=== PATIENT | male | born 1965 | race Caucasian/White ===

== ENCOUNTER 2024-06-01 17:33 | Inpatient (IN) | payer SELFPAY ==
[~2024-06-01] VITALS: Ht 167.6 cm; Wt 79.8 kg
[2024-06-01 17:38] VITALS: O2SAT 100
[2024-06-01] MEDS: SODIUM CHLORIDE 0.9% 1,000 ML IV ONE (18:01)
[2024-06-01] MEDS: FOLIC ACID 1 MG, THIAMINE HCL 100 MG, MVI, ADULT NO.1 10 ML in DEXTROSE 5% WATER 1,000 ML IV ONE (18:30)
[2024-06-01 18:43] LABS: CLARITY URINE CLEAR (CLEAR); COLOR URINE YELLOW (YELLOW); GLUCOSE URINE 3+ (NEGATIVE); KETONES URINE 2+ (NEGATIVE); LEUKOCYTE ESTERASE URINE NEGATIVE (NEGATIVE); NITRITE URINE NEGATIVE (NEGATIVE); OCCULT BLOOD URINE NEGATIVE (NEGATIVE); PH URINE 5.5 (4.5-8.0); PROTEIN URINE 1+ (NEGATIVE); SPECIFIC GRAVITY URINE 1.025 (1.005-1.030); UROBILINOGEN URINE 0.2 E.U./dL (0.2-1.0)
[2024-06-01 19:01] LABS: RBC URINE 0-2 /hpf (0-2); SQUAMOUS EPITHELIAL CELL URINE RARE /lpf (RARE/1+); WBC URINE 0-2 /hpf (0-2)
[2024-06-01 19:02] LABS: BACTERIA URINE NONE SEEN
[2024-06-01 20:21] LABS: BASOPHILS % 0.2 % (0.0-2.0); HEMATOCRIT. 44.9 % (42.0-52.0); MEAN CORPUSCULAR HEMOGLOBIN 29.8 pg (28.0-32.0); MEAN CORPUSCULAR HGB CONC 33.4 g/dL (31.0-37.0); MEAN CORPUSCULAR VOLUME 89.2 fL (80.0-94.0); MEAN PLATELET VOLUME 8.9 fl (7.4-10.4); MONOCYTES % 4.1 % (2.0-8.0); NEUTROPHILS % 79.7 % (40.0-76.0); PLATELET 253 x1000/uL (130-400); RED BLOOD CELL COUNT 5.03 mill/uL (4.7-6.1); RED CELL DISTRIBUTION WIDTH 13.7 % (11.6-14.6)
[2024-06-01 20:25] LABS: PROTHROMBIN TIME 10.9 sec (9.6-11.0)
[2024-06-01 20:28] LABS: CARBON DIOXIDE 20 mEq/L (21-32); CHLORIDE 103 mEq/L (98-107); POTASSIUM 3.6 mEq/L (3.5-5.1); SODIUM 140 mEq/L (136-145)
[2024-06-01 20:29] LABS: CALCIUM 9.1 mg/dL (8.7-10.4)
[2024-06-01 20:33] LABS: CREATININE 1.2 mg/dL (0.6-1.3); GLUCOSE 253 mg/dL (70-105)
[2024-06-01 20:34] LABS: TROPONIN I HIGH SENSITIVITY 13 ng/L (3.0-53); UREA NITROGEN BLOOD 11 mg/dL (9-23)
[2024-06-01 20:35] LABS: ACETAMINOPHEN < 2 ug/mL (10-30); ALANINE AMINOTRANSFERASE 21 IU/L (10-49); ALBUMIN 4.6 g/dL (3.2-4.8); ASPARTATE AMINOTRANSFERASE 24 IU/L (<34)
[2024-06-01 20:36] LABS: BILIRUBIN DIRECT 0.2 mg/dL (<=3.0); BILIRUBIN TOTAL 0.6 mg/dL (0.1-1.0); PHOSPHORUS 2.3 mg/dL (2.5-4.9); PROTEIN TOTAL 7.7 g/dL (6.0-8.3)
[2024-06-01 20:39] LABS: ETHANOL BLOOD < 10 mg/dL (<10)
[2024-06-01] MEDS: LORAZEPAM 2MG/ML INJ IV ONE ×2 (20:43→21:45)
[2024-06-01] MEDS ORDERED: MAGNESIUM/ALUMINUM HYDROXIDE/SIMETHICONE 30ML UDC PO PRN (21:15)
[2024-06-01] MEDS ORDERED: DEXTROSE 50% WATER 50ML SYRINGE IV PRN (21:15)
[2024-06-01] MEDS ORDERED: ACETAMINOPHEN 325MG TABLET PO PRN (21:15)
[2024-06-01] MEDS ORDERED: CLONIDINE 0.1MG TABLET PO PRN (21:15)
[2024-06-01] MEDS ORDERED: DOCUSATE SODIUM 100MG CAPSULE PO PRN (21:15)
[2024-06-01] MEDS ORDERED: ONDANSETRON HCL 4MG/2ML INJ IV PRN (21:15)
[2024-06-01] MEDS ORDERED: IPRATROPIUM/ALBUTEROL 0.5-3(2.5)MG/3ML NEB HHN PRN (21:15)
[2024-06-01] MEDS ORDERED: GUAIFENESIN 200MG/10ML SUGAR FREE UDC PO PRN (21:15)
[2024-06-01] MEDS: MAGNESIUM 2 G PREMIX 50 ML IV NR (21:30)
[2024-06-01] MEDS: POTASSIUM PHOSPHATE 15 MMOL in DEXT 5% WATER 245 ML IV NR (22:00)
[2024-06-01 23:00] VITALS: BP 144/77; PULSE 135; RESP 18; TEMP 37.61412; O2SAT 100
[2024-06-01] MEDS ORDERED: NITROGLYCERIN 0.4MG TABLET SL SL PRN (23:00)
[2024-06-01] MEDS: METOPROLOL TARTRATE 5MG/5ML VIAL IV NR (23:10)
[2024-06-02] VITALS: BP 139/82; PULSE 117; RESP 18; TEMP 36.33624; O2SAT 98
[2024-06-02 04:00] VITALS: BP 158/93; PULSE 133; RESP 20; TEMP 37.503; O2SAT 99
[2024-06-02] MEDS: BLOOD SUGAR DIAGNOSTIC STRIP TEST SCH (06:35)
[2024-06-02] MEDS: INSULIN LISPRO 100 UNITS/ML SUBCUT SCH (06:42)
[2024-06-02 08:00] VITALS: BP 159/94; PULSE 115; RESP 16; TEMP 36.6696; O2SAT 98
[2024-06-02] MEDS: PANTOPRAZOLE SODIUM 40 MG/VIAL IV SCH (08:23)
[2024-06-02] MEDS: METOPROLOL SUCCINATE 50MG ER TABLET PO SCH (08:23)
[2024-06-02] MEDS: FOLIC ACID 1MG TABLET PO SCH (08:23)
[2024-06-02] MEDS: THIAMINE HCL 100MG TABLET PO SCH (08:23)
[2024-06-02 08:43] LABS: CALCIUM 8.9 mg/dL (8.7-10.4); POTASSIUM 3.2 mEq/L (3.5-5.1)
[2024-06-02 08:48] LABS: CREATININE 1.3 mg/dL (0.6-1.3)
[2024-06-02 08:50] LABS: BASOPHILS % 0.4 % (0.0-2.0); EOSINOPHILS % 0.1 % (0.0-5.0); HEMOGLOBIN. 14.3 g/dL (14.0-18.0); LYMPHOCYTES % 26.6 % (20.0-50.0); MEAN CORPUSCULAR HEMOGLOBIN 31.1 pg (28.0-32.0); MEAN CORPUSCULAR HGB CONC 34.9 g/dL (31.0-37.0); MEAN CORPUSCULAR VOLUME 89.1 fL (80.0-94.0); MEAN PLATELET VOLUME 9.6 fl (7.4-10.4); MONOCYTES % 7.1 % (2.0-8.0); NEUTROPHILS % 65.8 % (40.0-76.0); PLATELET 218 x1000/uL (130-400); RED CELL DISTRIBUTION WIDTH 13.7 % (11.6-14.6); WHITE BLOOD COUNT 12.2 x1000/uL (4.5-11.0)
[2024-06-02 09:55] LABS: *AMPHETAMINES SCREEN URINE NEGATIVE (NEGATIVE); *BARBITURATES SCREEN URINE NEGATIVE (NEGATIVE); *BENZODIAZEPINES SCREEN URINE NEGATIVE (NEGATIVE)
[2024-06-02 09:56] LABS: *COCAINE SCREEN URINE NEGATIVE (NEGATIVE); METHADONE URINE SCREEN NEGATIVE (NEGATIVE)
[2024-06-02 09:57] LABS: CANNABINOID URINE SCREEN NEGATIVE (NEGATIVE); ECSTASY MDMA SCREEN URINE NEGATIVE (NEGATIVE); OPIATES URINE SCREEN NEGATIVE (NEGATIVE); PHENCYCLIDINE URINE SCREEN NEGATIVE (NEGATIVE)
[2024-06-02] MEDS: LORAZEPAM 2MG/ML INJ IV PRN (15:18)
[2024-06-02 15:21] VITALS: BP 158/87; PULSE 108; RESP 16; TEMP 36.6696; TEMP 36.66960; O2SAT 98
[2024-06-02] MEDS: FLUOXETINE HCL 10 MG CAPSULE PO SCH (16:00)
== END 2024-06-02 19:28 | disposition left against medical advice (07) | DRG 201 ==
LOC: ER 17:33 → 5WST 20:42 → EDBEDREQSVC 20:44 → EDBEDREQTM 20:44 → EDBEDREQ 20:44 → 5WST 06-02 08:06
PROVIDERS: ADMIT Internal Medicine; ATTEND Internal Medicine
DX: I47.10 Supraventricular tachycardia, unspecified (principal); R65.10 Systemic inflammatory response syndrome (SIRS) of non-infectious origin without acute organ dysfunction; E83.39 Other disorders of phosphorus metabolism; F33.2 Major depressive disorder, recurrent severe without psychotic features; D72.829 Elevated white blood cell count, unspecified; E11.65 Type 2 diabetes mellitus with hyperglycemia; Z20.822 Contact with and (suspected) exposure to COVID-19; Z53.29 Procedure and treatment not carried out because of patient's decision for other reasons; I10 Essential (primary) hypertension; E83.42 Hypomagnesemia; F10.239 Alcohol dependence with withdrawal, unspecified; R79.89 Other specified abnormal findings of blood chemistry; Z63.9 Problem related to primary support group, unspecified; Z79.899 Other long term (current) drug therapy
CPT/HCPCS: 36415; 71045; 80048; 80061; 80076; 80305; 80307; 80320; 80329; 81003; 82962; 83036; 83735; 83880; 84100; 84145; 84484; 85025; 85379; 87426; 93005; 93970; 99291; J1815; J2060; J2470; J3411; J3475; J3490; J7030; J7060; J7070; G0480

== ENCOUNTER 2024-09-09 10:26 | Inpatient (IN) | payer SELFPAY ==
[~2024-09-09] VITALS: Ht 170.2 cm; Wt 85.7 kg
[2024-09-09 11:14] LABS: BASOPHILS % 0.4 % (0.0-2.0); HEMATOCRIT. 47.4 % (42.0-52.0); HEMOGLOBIN. 16.4 g/dL (14.0-18.0); LYMPHOCYTES % 19.5 % (20.0-50.0); MEAN CORPUSCULAR HEMOGLOBIN 30.9 pg (28.0-32.0); MEAN CORPUSCULAR HGB CONC 34.6 g/dL (31.0-37.0); MEAN CORPUSCULAR VOLUME 89.3 fL (80.0-94.0); MEAN PLATELET VOLUME 9.9 fl (7.4-10.4); MONOCYTES % 3.9 % (2.0-8.0); NEUTROPHILS % 76.2 % (40.0-76.0); PLATELET 263 x1000/uL (130-400); RED CELL DISTRIBUTION WIDTH 13.9 % (11.6-14.6); WHITE BLOOD COUNT 16.8 x1000/uL (4.5-11.0)
[2024-09-09 11:24] LABS: CHLORIDE 102 mEq/L (98-107); SODIUM 137 mEq/L (136-145)
[2024-09-09 11:25] LABS: CALCIUM 9.8 mg/dL (8.7-10.4); CARBON DIOXIDE 19 mEq/L (21-32)
[2024-09-09 11:30] LABS: CREATININE 1.2 mg/dL (0.6-1.3); GLUCOSE 241 mg/dL (70-105); UREA NITROGEN BLOOD 7 mg/dL (9-23)
[2024-09-09 11:48] LABS: ETHANOL BLOOD < 10 mg/dL (<10)
[2024-09-09 12:41] LABS: LACTIC ACID 5.6 mmol/L (0.4-2.0)
[2024-09-09] MEDS ORDERED: DEXTROSE 50% WATER 50ML SYRINGE IV PRN (13:00)
[2024-09-09] MEDS ORDERED: BLOOD SUGAR DIAGNOSTIC STRIP TEST PRN (13:00)
[2024-09-09] MEDS ORDERED: KCL 20MEQ/100ML PREMIX 100 ML IV PRN (13:00)
[2024-09-09] MEDS ORDERED: MAGNESIUM 2 G PREMIX 50 ML IV PRN (13:00)
[2024-09-09 13:20] LABS: BG BASE EXCESS 1.2 mmol/L (-2.0-3.0); BG CARBOXYHEMOGLOBIN 0.8 % (0.5-1.5); BG FRACTION INSPIRED OXYGEN 21; BG HCO3 ACT 21.6 mmol/L (21.0-28.0); BG METHEMOGLOBIN 0.1 % (0.5-1.5); BG OXYHEMOGLOBIN 96.1 % (94.0-98.0); BG PCO2 25.1 mmHg (35.0-48.0); BG PH 7.553 (7.350-7.450); BG PO2 83.2 mmHg (83.0-108.0); BG SAMPLE SITE RIGHT RADIAL; BG TOTAL HEMOGLOBIN 16.2 g/dL (13.5-17.5); BG VENT MODE ROOM AIR
[2024-09-09] MEDS: SODIUM CHLORIDE 0.9% 1,000 ML IV ONE (13:27)
[2024-09-09] MEDS: BLOOD SUGAR DIAGNOSTIC STRIP TEST SCH (13:33)
[2024-09-09] MEDS: INSULIN REGULAR (HUMULIN R) 1000UNITS/10ML VIAL IV NR (13:38)
[2024-09-09] MEDS: INSULIN REGULAR 100U/100ML PMX 100 ML IV SCH (14:30)
[2024-09-09] MEDS: DEXT 5%/0.9% NACL 1,000 ML IV SCH (14:36)
[2024-09-09 14:44] LABS: PHOSPHORUS 1.2 mg/dL (2.5-4.9)
[2024-09-09] MEDS: SODIUM CHLORIDE 0.9% 1,000 ML IV SCH (17:00)
[2024-09-09 18:15] LABS: *AMPHETAMINES SCREEN URINE NEGATIVE (NEGATIVE); *BARBITURATES SCREEN URINE NEGATIVE (NEGATIVE); *BENZODIAZEPINES SCREEN URINE NEGATIVE (NEGATIVE); *COCAINE SCREEN URINE NEGATIVE (NEGATIVE); CANNABINOID URINE SCREEN NEGATIVE (NEGATIVE); ECSTASY MDMA SCREEN URINE NEGATIVE (NEGATIVE); METHADONE URINE SCREEN NEGATIVE (NEGATIVE); OPIATES URINE SCREEN NEGATIVE (NEGATIVE); PHENCYCLIDINE URINE SCREEN NEGATIVE (NEGATIVE)
[2024-09-09 21:49] LABS: CHLORIDE 106 mEq/L (98-107); SODIUM 140 mEq/L (136-145)
[2024-09-09 21:50] LABS: CALCIUM 9.3 mg/dL (8.7-10.4); CARBON DIOXIDE 21 mEq/L (21-32)
[2024-09-09 21:55] LABS: CREATININE 1.3 mg/dL (0.6-1.3); GLUCOSE 179 mg/dL (70-105); UREA NITROGEN BLOOD 8 mg/dL (9-23)
[2024-09-09 21:57] LABS: ALANINE AMINOTRANSFERASE 12 IU/L (10-49); ALBUMIN 4.4 g/dL (3.2-4.8); ASPARTATE AMINOTRANSFERASE 16 IU/L (<34)
[2024-09-09 21:58] LABS: BILIRUBIN TOTAL 0.6 mg/dL (0.1-1.0); PROTEIN TOTAL 7.5 g/dL (6.0-8.3)
[2024-09-09 22:17] LABS: PHOSPHORUS 0.5 mg/dL (2.5-4.9)
[2024-09-09] MEDS: POTASSIUM CHLORIDE 40 MEQ in SODIUM CHLORIDE 0.9% 230 ML IV PRN (23:06)
[2024-09-09] MEDS: SODIUM PHOSPHATE 15 MMOL in SODIUM CHLORIDE 0.9% 245 ML IV PRN (23:06)
[2024-09-10] MEDS ORDERED: ACETAMINOPHEN 325MG TABLET PO PRN ×2 (00:15)
[2024-09-10] MEDS ORDERED: ONDANSETRON HCL 4MG/2ML INJ IV PRN (00:15)
[2024-09-10] MEDS: SODIUM CHLORIDE 0.9% 1,000 ML IV SCH (00:15)
[2024-09-10] MEDS ORDERED: CLONIDINE 0.1MG TABLET PO PRN (00:15)
[2024-09-10] MEDS ORDERED: DIPHENHYDRAMINE 50MG/ML VIAL IV PRN (00:15)
[2024-09-10] MEDS ORDERED: MAGNESIUM/ALUMINUM HYDROXIDE/SIMETHICONE 30ML UDC PO PRN (00:15)
[2024-09-10 01:08] LABS: CHLORIDE 108 mEq/L (98-107); POTASSIUM 3.3 mEq/L (3.5-5.1); SODIUM 141 mEq/L (136-145)
[2024-09-10 01:09] LABS: CALCIUM 8.9 mg/dL (8.7-10.4); CARBON DIOXIDE 23 mEq/L (21-32)
[2024-09-10 01:14] LABS: CREATININE 1.2 mg/dL (0.6-1.3); GLUCOSE 166 mg/dL (70-105); UREA NITROGEN BLOOD 7 mg/dL (9-23)
[2024-09-10 01:16] LABS: ALANINE AMINOTRANSFERASE 11 IU/L (10-49); ALBUMIN 4.2 g/dL (3.2-4.8); ASPARTATE AMINOTRANSFERASE 19 IU/L (<34); BILIRUBIN TOTAL 0.7 mg/dL (0.1-1.0); PHOSPHORUS 1.4 mg/dL (2.5-4.9); PROTEIN TOTAL 7.2 g/dL (6.0-8.3)
[2024-09-10] MEDS: POTASSIUM PHOSPHATE 30 MMOL in SODIUM CHLORIDE 0.9% 490 ML IV NR ×2 (01:35→17:18)
[2024-09-10] MEDS ORDERED: DEXTROSE 50% WATER 50ML SYRINGE IV PRN (03:30)
[2024-09-10 05:00] VITALS: BP 150/87; PULSE 106; RESP 20; TEMP 36.7
[2024-09-10 05:45] VITALS: BP 150/78; PULSE 109; TEMP 98.2; O2SAT 98
[2024-09-10] MEDS: SODIUM CHLORIDE 0.9% 3ML FLUSH IVF SCH (06:48)
[2024-09-10] MEDS: BLOOD SUGAR DIAGNOSTIC STRIP TEST SCH (07:39)
[2024-09-10 08:01] VITALS: BP 143/93; PULSE 110; RESP 20; TEMP 36.2; O2SAT 96
[2024-09-10] MEDS: INSULIN LISPRO 100 UNITS/ML SUBCUT SCH (08:21)
[2024-09-10 12:00] VITALS: BP 158/89; PULSE 100; RESP 20; TEMP 36.1; O2SAT 100
[2024-09-10 12:35] LABS: BASOPHILS % 0.3 % (0.0-2.0); HEMATOCRIT. 42.4 % (42.0-52.0); HEMOGLOBIN. 14.3 g/dL (14.0-18.0); LYMPHOCYTES % 26.4 % (20.0-50.0); MEAN CORPUSCULAR HEMOGLOBIN 30.6 pg (28.0-32.0); MEAN CORPUSCULAR HGB CONC 33.8 g/dL (31.0-37.0); MEAN CORPUSCULAR VOLUME 90.6 fL (80.0-94.0); MEAN PLATELET VOLUME 9.8 fl (7.4-10.4); MONOCYTES % 6.2 % (2.0-8.0); NEUTROPHILS % 67.1 % (40.0-76.0); PLATELET 230 x1000/uL (130-400); RED BLOOD CELL COUNT 4.68 mill/uL (4.7-6.1); RED CELL DISTRIBUTION WIDTH 13.5 % (11.6-14.6); WHITE BLOOD COUNT 8.5 x1000/uL (4.5-11.0)
[2024-09-10 12:54] LABS: CARBON DIOXIDE 24 mEq/L (21-32); CHLORIDE 106 mEq/L (98-107); SODIUM 139 mEq/L (136-145)
[2024-09-10 12:59] LABS: CREATININE 1.2 mg/dL (0.6-1.3)
[2024-09-10 13:00] LABS: GLUCOSE 177 mg/dL (70-105); UREA NITROGEN BLOOD 7 mg/dL (9-23)
[2024-09-10 13:02] LABS: PHOSPHORUS 1.9 mg/dL (2.5-4.9)
[2024-09-10 16:00] VITALS: BP 146/83; PULSE 97; RESP 19; TEMP 36.2; O2SAT 100
[2024-09-10 20:00] VITALS: BP 145/88; PULSE 104; RESP 18; TEMP 36.6; O2SAT 96
[2024-09-11] VITALS: BP 149/95; PULSE 98; RESP 18; TEMP 36.7; O2SAT 98
[2024-09-11 04:00] VITALS: BP 157/103; PULSE 95; RESP 18; TEMP 36.6; O2SAT 97
[2024-09-11 08:00] VITALS: BP 129/73; PULSE 86; RESP 18; TEMP 36.4; O2SAT 98
[2024-09-11 12:00] VITALS: BP 127/75; PULSE 86; RESP 18; TEMP 36.4; O2SAT 98
[2024-09-11] MEDS: FLUOXETINE HCL 10 MG CAPSULE PO SCH (12:00)
[2024-09-11 15:59] VITALS: BP 150/90; PULSE 85; RESP 18; TEMP 36.1; O2SAT 99
[2024-09-11 16:02] VITALS: BP 150/90; PULSE 85; TEMP 97; O2SAT 99
[2024-09-11] MEDS: INFLUENZA VACCINE 05/PF 0.5 ML SYRINGE IM ONE (17:21)
[2024-09-11] MEDS: PNEUMOCOCCAL 20-VAL CONJ-DIP CRM 0.5ML IM ONE (17:22)
== END 2024-09-11 17:20 | disposition home or self-care (01) | DRG 816 ==
LOC: ER 10:26 → 6WST 13:31 → EDBEDREQSVC 15:37
PROVIDERS: ADMIT Internal Medicine; ATTEND Internal Medicine
PROC: GZ56ZZZ Individual Psychotherapy, Supportive (ICD-10-PCS; principal; 2024-09-11)
DX: T51.2X1A Toxic effect of 2-Propanol, accidental (unintentional), initial encounter (principal); E83.39 Other disorders of phosphorus metabolism; E87.6 Hypokalemia; F10.20 Alcohol dependence, uncomplicated; Y90.9 Presence of alcohol in blood, level not specified; F32.9 Major depressive disorder, single episode, unspecified; Y92.89 Other specified places as the place of occurrence of the external cause
CPT/HCPCS: 36415; 36600; 80048; 80053; 80305; 80307; 80320; 80329; 82375; 82805; 82962; 83036; 83605; 83735; 83930; 84100; 85025; 99285; A4606; C1893; J1815; J3480; J3490; J7040; J7050; G0480